=== PATIENT | male | born 1970 | race Caucasian/White ===

== ENCOUNTER 2023-09-13 22:22 | Emergency (ER) | payer OTHER ==
[2023-09-13 22:36] VITALS: BMI 24.2
[2023-09-13] MEDS ORDERED: KETOROLAC TROMETHAMINE 30 MG/1 ML VIAL IM ONE (23:15)
[2023-09-14 02:32] VITALS: TEMP 97.8
[2023-09-14 02:35] VITALS: BP 128/83; PULSE 67; RESP 16
== END 2023-09-14 05:05 | disposition home or self-care (01) ==
LOC: JER 22:22
PROC: 2W3CX1Z Immobilization of Right Lower Arm using Splint (ICD-10-PCS; principal; 2023-09-13)
PROC: 3E0233Z Introduction of Anti-inflammatory into Muscle, Percutaneous Approach (ICD-10-PCS; 2023-09-13)
DX: M25.521 Pain in right elbow (principal); M25.531 Pain in right wrist; M25.562 Pain in left knee; R42 Dizziness and giddiness; S22.32XA Fracture of one rib, left side, initial encounter for closed fracture; S52.121A Displaced fracture of head of right radius, initial encounter for closed fracture; R51.9 Headache, unspecified; M54.2 Cervicalgia; M25.551 Pain in right hip; V03.10XA Pedestrian on foot injured in collision with car, pick-up truck or van in traffic accident, initial encounter; Y92.410 Unspecified street and highway as the place of occurrence of the external cause
CPT/HCPCS: 70450-TC; 71046-TC-FY; 72170-TC-FY; 73070-TC-RT-FY; 73110-TC-RT-FY; 73130-TC-RT-FY; 73521-TC-FY; 73562-TC-LT-FY; 99284-25

== ENCOUNTER 2023-09-30 13:46 | Emergency (ER) | payer OTHER ==
[2023-09-30 14:16] VITALS: BP 129/91; PULSE 72; RESP 18; TEMP 97.6; BMI 25.2
[2023-09-30] MEDS ORDERED: LIDOCAINE 5% TOPICAL PATCH TP ONE (14:39)
[2023-09-30] MEDS ORDERED: KETOROLAC TROMETHAMINE 30 MG/1 ML VIAL IM ONE (14:39)
[2023-09-30] MEDS ORDERED: KETOROLAC TROMETHAMINE 30 MG/1 ML VIAL ONE (15:04)
[2023-09-30] MEDS ORDERED: LIDOCAINE 4% PATCH TP ONE (15:04)
[2023-09-30] MEDS ORDERED: LIDOCAINE PATCH REMOVAL MC SCH (22:00)
== END 2023-09-30 15:42 | disposition home or self-care (01) ==
LOC: JER 13:46 → JERFT 13:46
PROC: 3E0233Z Introduction of Anti-inflammatory into Muscle, Percutaneous Approach (ICD-10-PCS; principal; 2023-09-30)
DX: M54.50 Low back pain, unspecified (principal); G89.29 Other chronic pain; M25.511 Pain in right shoulder; V09.20XA Pedestrian injured in traffic accident involving unspecified motor vehicles, initial encounter
CPT/HCPCS: 99284-25